=== PATIENT | female | born 1985 ===

== ENCOUNTER 2020-09-11 15:17 | Outpatient (REF) | payer OTHER, SELFPAY ==
[2020-09-16 06:33] LABS: SARS-CoV-2 RNA Undetected (Undetected); SARS-CoV-2 Specimen Source Nasal
== END 2020-09-11 15:37 ==
LOC: NCHCN 15:17
PROVIDERS: PCP Family Medicine; Visit Provider Family Medicine
DX: R09.81 Nasal congestion (principal)
CPT/HCPCS: U0003